=== PATIENT | male | born 1955 | race Caucasian/White ===

== ENCOUNTER → 2022-02-24 | Outpatient (CLI) | payer OTHER | LOC: SHCH 07:53 | PROVIDERS: ATTEND Internal Medicine Cardiovascular Disease | DX: I71.9 Aortic aneurysm of unspecified site, without rupture (principal) | CPT/HCPCS: 93306 ==

== ENCOUNTER → 2023-05-03 | Outpatient (CLI) | payer OTHER ==
[2023-05-03 12:29] LABS: CREATININE 1.1 mg/dL (0.5-1.5); POTASSIUM 3.9 mmol/L (3.5-5.1)
== END | disposition home or self-care (01) ==
LOC: LAB 08:27
PROVIDERS: ATTEND Internal Medicine Cardiovascular Disease
DX: E78.5 Hyperlipidemia, unspecified (principal)
CPT/HCPCS: 36415; 80048

== ENCOUNTER → 2023-05-11 | Outpatient (CLI) | payer OTHER ==
[~2023-05-11] MED LIST: IOHEXOL-350 75 ML VIAL IV ONE
== END | disposition home or self-care (01) ==
LOC: RAH 08:13
PROVIDERS: ATTEND Internal Medicine Cardiovascular Disease
DX: I71.21 Aneurysm of the ascending aorta, without rupture (principal)
CPT/HCPCS: 71275; Q9967

== ENCOUNTER → 2025-05-07 | Outpatient (CLI) | payer OTHER ==
[~2025-05-07] MED LIST changes: +FENO145T26 PO; +IOHEXOL 350 MG/ML 100ML INFUS..BTL IV ONE; -IOHEXOL-350 75 ML VIAL IV ONE; +SIMV-46 PO; +TAMS-55 PO
--- NOTE | 2025-05-07 22:27 | HMCIMG ---
EXAM: CTA chest with contrast. CLINICAL HISTORY: Screening for cardiovascular disorders. TECHNIQUE: Thin collimated axial CT images of the chest were obtained with sagittal and coronal reformatted images also submitted. CT scan done according to ALARA (As Low as Reasonably Achievable). Intravenous contrast was administered. COMPARISON: CT angiography chest dated 05/11/23. FINDINGS: 2 mm subpleural right middle lobe nodule (series 4, image 46).) 3 mm subpleural right lower lobe nodule (image 50). 2 mm subpleural right lower lobe nodule (image 36). 3 mm subpleural left lower lobe (image 29). 3 mm subpleural left lower lobe nodule (image 36). 2 mm perifissural nodule along the left major fissure (image 20). No pleural effusions. No pericardial effusion. The cardiac chambers and intrathoracic vessels are well opacified. The heart size is within normal limits. Mild calcific plaques in the coronary arteries and intrathoracic aorta. The dimensions of the intrathoracic aorta at various levels are as follows: Annulus: 3.3 cm Sinus Of Valsalva: 4.4 cm Sinotubular junction: 3.1 cm Ascending aorta: 3.4 cm Aortic arch: 2.8 cm Descending thoracic aorta: 2.4 cm The pulmonary arteries appear normal in course, caliber and contrast opacification. No dissection or thrombosis. No axillary, supraclavicular, or mediastinal lymphadenopathy. No focal thyroid abnormality. Limited views of the upper abdomen demonstrate right renal and hepatic cysts. One of the right renal cysts shows hyperdense contents (43 HU), likely proteinaceous contents. No acute or suspicious osseous abnormality. Mild spondylotic changes in the visualized spine with multilevel small marginal osteophytes and tiny Schmorl's nodes. IMPRESSION: 1. Mildly dilated aortic root. No definitive aneurysm, dissection or thrombosis. No pulmonary thromboembolism. 2. Multiple sub-4 mm bilateral pulmonary nodules, likely benign. Lung RADS category 2. Continue annual screening with low-dose CT chest. 3. Right renal and hepatic cysts. One of the right renal cysts shows hyperdense contents (43 HU), likely proteinaceous contents. No significant interval change from the prior CT angiography chest dated 05/11/23. /Steptoe
== END | disposition home or self-care (01) ==
LOC: RAH 08:42
PROVIDERS: ATTEND Internal Medicine Cardiovascular Disease
DX: R91.8 Other nonspecific abnormal finding of lung field (principal); I25.10 Atherosclerotic heart disease of native coronary artery without angina pectoris; I70.0 Atherosclerosis of aorta; I77.819 Aortic ectasia, unspecified site; K76.89 Other specified diseases of liver; N28.1 Cyst of kidney, acquired; Z13.6 Encounter for screening for cardiovascular disorders; M47.814 Spondylosis without myelopathy or radiculopathy, thoracic region; M25.78 Osteophyte, vertebrae
CPT/HCPCS: 71275; Q9967